=== PATIENT | male | born 1970 | race Caucasian/White ===

== ENCOUNTER → 2019-08-21 | Outpatient (CLI) | payer BC | LOC: CARD 08:50 | PROVIDERS: ATTEND Family Medicine | DX: I45.4 Nonspecific intraventricular block (principal) | CPT/HCPCS: 93306 ==

== ENCOUNTER → 2022-11-09 | Outpatient (CLI) | payer BC ==
[~2022-11-09] MED LIST: CATHETER FLUSH 10 ML SYR IVP PRN
[2022-11-09 09:04] VITALS: BP 141/62
--- NOTE | 2022-11-09 11:11 | Cardiology Stress Test Report ---
Stress Test Report Date of Procedure/Referring: Date of Procedure: Nov 09, 2022 PCP Jorge Garza MD Admitting Physician Admitting Physician: Attending Physician: Vita Zuniga MD Indications: CP Baseline Heart Rate: 58 Baseline Blood Pressure: Blood Pressure Systolic: 141 Blood Pressure Diastolic: 62 Vital Signs Date Time Temp Pulse Resp B/P (MAP) Pulse Ox O2 Delivery O2 Flow Rate FiO2 11/09/22 09:04 81 16 141/62 (88) 99 Room Air Baseline Vital Signs Vital Signs Date Time Temp Pulse Resp B/P (MAP) Pulse Ox O2 Delivery O2 Flow Rate FiO2 11/09/22 09:04 81 16 141/62 (88) 99 Room Air Baseline EKG: Baseline EKG: NSR Summary: After explaining the procedure and details to the patient, he signed the consent and was brought to the stress nuclear laboratory. Patient exercised on standard Guilherme protocol, EKG, heart rate and blood pressure were monitored continuously, resting and stress doses of radio tracer were injected, imaging was acquired and reviewed in the short axis, horizontal long axis and vertical long axis views Patient was able to exercise for a total of 10.30 minutes on Guilherme protocol, METs 12.1 Maximum heart rate 145 Maximum blood pressure 209/63 Stress EKG, Minimal nondiagnostic changes Recovery EKG, Return to baseline TID: 0.89 SSS: 0 SDS: 0 EF: 63 Conclusion: Excellent exercise tolerance for a total of 10 minutes and 30 seconds on standard Guilherme protocol, 12.1 METS achieving 85% of maximal expected heart rate Appropriate heart rate response to exercise with hypertensive response to exercise with peak blood pressure 209/63 return to baseline during recovery Baseline incomplete right bundle branch block with nondiagnostic EKG changes with exercise return to baseline during recovery No significant ischemia or infarction noted on SPECT images Normal left ventricular size, ejection fraction 63% Copy Copies To 1: JORGE GARZA MD, BASHAR J MD Nov 09, 2022 11:11
== END ==
LOC: CARD 07:30
PROVIDERS: ATTEND Internal Medicine Cardiovascular Disease
DX: R07.9 Chest pain, unspecified (principal)
CPT/HCPCS: 78452; 93017; A9502